=== PATIENT | female | born 1975 | race Caucasian/White ===

== ENCOUNTER 2017-07-21 16:50 | Emergency (ER) | payer BC ==
[2017-07-21 18:29] VITALS: BP 119/67
[2017-07-21] MEDS ORDERED: Acetaminophen TAB* 325 MG PO ONE (18:51)
--- NOTE | 2017-07-21 18:54 | UC ---
Respiratory Complaint HPI - HPI Summary HPI Summary: pt c/o sudden onset of cough, fever, chills and generalized malaise. Pt's daughter recently diagnosed with pneumonia - History of Current Complaint Chief Complaint: UCGeneralIllness Stated Complaint: COUGH,FEVER Time Seen by Provider: 07/21/17 18:22 Hx Obtained From: Patient Hx Last Menstrual Period: 05/2017, has had ablation ?: No Onset/Duration: Sudden Onset Timing: Constant Severity Initially: Mild Severity Currently: Moderate Character: Cough: Nonproductive Aggravating Factors: Deep Breaths, Recumbent Position Alleviating Factors: Nothing Associated Signs And Symptoms: Positive: Fever, Chills - Risk Factors Pulmonary Embolism Risk Factors: Negative Cardiac Risk Factors: Negative Pseudomonas Risk Factors: Negative Tuberculosis Risk Factors: Negative - Allergies/Home Medications Allergies/Adverse Reactions: Allergies Allergy/AdvReac Type Severity Reaction Status Date / Time Levofloxacin [From Levaquin] Allergy Intermediate Itching Verified 07/21/17 18: 28 Home Medications: Home Medications Fluticasone NASAL SPRAY 50MCG* [Flonase NASAL SPRAY 50MCG*] 2 spray BOTH NARES DAILY PRN 07/21/17 [History Confirmed 07/21/17] LevoCETirizine TAB (NF) [Xyzal TAB (NF)] 5 mg PO BEDTIME 07/21/17 [History Confirmed 07/21/17] PMH/Surg Hx/FS Hx/Imm Hx Previously Healthy: Yes - Surgical History Surgical History: Yes Surgery Procedure, Year, and Place: 2006 UTERINE ABLASION- [facility] [place]. 1998 LASIK SURG - [place]. 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 Lives: With Family Alcohol Use: Rare Alcohol Amount: 1 GLASS WINE/MONTH Substance Use Type: None Smoking Status (MU): Never Smoked Tobacco Have You Smoked in the Last Year: No - Immunization History Most Recent Influenza Vaccination: 06/2017 Review of Systems Constitutional: Fever, Chills, Other - malaise Skin: Negative Eyes: Negative ENT: Negative Respiratory: Cough Cardiovascular: Negative Gastrointestinal: Negative Genitourinary: Negative Motor: Negative Neurovascular: Negative Musculoskeletal: Myalgia Neurological: Negative Psychological: Negative Is Patient Immunocompromised?: No All Other Systems Reviewed And Are Negative: Yes Physical Exam Triage Information Reviewed: Yes Appearance: Ill-Appearing Vital Signs: Initial Vital Signs Temp 100 F 07/21/17 18:23 Pulse 98 07/21/17 18:23 Resp 15 07/21/17 18:23 BP 119/67 07/21/17 18:23 Pulse Ox 99 07/21/17 18:23 Vital Signs Reviewed: Yes Eye Exam: Normal ENT Exam: Normal Dental Exam: Normal Neck exam: Normal Respiratory Exam: Normal Cardiovascular Exam: Normal Musculoskeletal Exam: Normal Neurological Exam: Normal Psychological Exam: Normal Skin Exam: Normal UC Diagnostic Evaluation - Laboratory O2 Sat by Pulse Oximetry: 99 Respiratory Course/Dx - Course Course Of Treatment: I discussed the results of xray: IMPRESSION: BILATERAL INFILTRATES. SUGGEST FOLLOW-UP. with pt. - Differential Dx/Diagnosis Differential Diagnosis/HQI/PQRI: Bronchitis, Influenza, Other - pneumonia Provider Diagnoses: pneumonia Discharge - Discharge Plan Condition: Stable Disposition: HOME Prescriptions: Albuterol HFA INHALER* [Ventolin HFA Inhaler*] 1 - 2 puff INH Q4H PRN #1 mdi PRN Reason: Sob/Wheezing Azithromycin TAB* [Zithromax TAB (Z-MECHELLE) 250 mg #6 tabs] 250 mg PO DAILY #6 tab Benzonatate CAP* [Tessalon 100 MG CAP*] 100 mg PO Q8H PRN #30 cap PRN Reason: Cough Patient Education Materials: Pneumonia (ED) Referrals: Michela Blount MD [Primary Care Provider] - If Needed
--- NOTE | 2017-07-21 19:28 | RAD ---
INDICATION: Cough and fever COMPARISON: Chest x-ray June 27, 2008 TECHNIQUE: PA and lateral dual-energy views were obtained. FINDINGS: Bones/Soft Tissues: There are no acute bony findings. Cardiomediastinal: The cardiomediastinal silhouette is normal. Lungs: There are patchy, bilateral, interstitial infiltrates in the lower lung carrillo. Pleura: There are no pleural effusions. Other: None IMPRESSION: BILATERAL INFILTRATES. SUGGEST FOLLOW-UP.
[2017-07-21] MEDS ORDERED: cefTRIAXone VIAL(*) 1,000 MG VIAL IM ONE (19:35)
[2017-07-21] MEDS ORDERED: Benzonatate CAP* 100 MG PO ONE (19:36)
[2017-07-21] MEDS ORDERED: Lidocaine 1%* 5 ML VIAL INJ ONE (19:40)
== END 2017-07-21 20:15 | disposition home or self-care (01) ==
LOC: UCCORT 16:50
DX: J18.9 Pneumonia, unspecified organism (principal); Z88.1 Allergy status to other antibiotic agents
CPT/HCPCS: 71020; 87502; 96372; 99212; A9270-GY; G0463; J0696

== ENCOUNTER 2018-05-17 06:23 | Day surgery (SDC) | payer BC ==
[~2018-05-17 06:23] MED LIST: Buffered Lidocaine 0.9% SYRIN* 5 ML/SYR SYRINGE INTRADERM ONE; Dexamethasone TAB* 4 MG PO ONE; DiMENhydriNATE IV* 50 MG/ML VIAL IV PUSH PRN; Famotidine IV* 10 MG/ML 2 ML (20 mg) IV ONE; Morphine INJ* 2 MG/ML 1 ML SYRINGE (TWO MG - NEW SYRINGE VERSION) IV PRN; Naloxone* 0.4 MG/ML 1 ML VIAL IV PRN; Ondansetron INJ* 2 MG/ML VIAL ONE; PROCHLORPERAZINE INJ 5 MG/ML 2 ML VIAL IV PRN; fentaNYL* 50 MCG/ML 2 ML VIAL (100 MCG VIAL) IV PRN; oxyCODONE/Acetamin 5/325 MG* TAB PO PRN
[2018-05-17] MEDS ORDERED: Dexamethasone TAB* 4 MG ONE (07:04)
[2018-05-17] MEDS ORDERED: Famotidine IV* 10 MG/ML 2 ML (20 mg) ONE (07:04)
[2018-05-17] MEDS ORDERED: Ondansetron ODT TAB* 4 MG ONE (07:04)
[2018-05-17] MEDS ORDERED: Ropivacaine (OR use only) 2 MG/ML 10 ML ONE (07:05)
[2018-05-17] MEDS ORDERED: ceFAZolin 2 GM PREMIX (*) 2 GM/50 ML BAG IVPB ONE (07:05)
[2018-05-17] MEDS ORDERED: Lidocaine 2% PF* 10 ML AMP ONE (07:06)
[2018-05-17] MEDS ORDERED: KETAMINE HCL* 50 MG/ML 10 ML VIAL ONE (07:09)
[2018-05-17] MEDS ORDERED: Midazolam* 1 MG/ML 5 ML VIAL (5 MG) ONE (07:09)
[2018-05-17] MEDS ORDERED: fentaNYL* 50 MCG/ML 2 ML VIAL (100 MCG VIAL) ONE (07:09)
[2018-05-17] MEDS ORDERED: Propofol* 10 MG/ML 20 ML BTL IV PUSH ONE (09:05)
[2018-05-17] MEDS ORDERED: Lidocaine 2% PF * 5 ML VIAL ONE (09:06)
[2018-05-17] MEDS ORDERED: Propofol* 500 MG/50 ML BTL ONE (09:07)
[2018-05-17 09:28] VITALS: BP 110/67
--- NOTE | 2018-05-18 01:39 | OP ---
DATE OF OPERATION: 05/17/18 - [facility] DATE OF : 73 ATTENDING SURGEON: Bill Shepard MD DELI DEPARTMENT MANAGER: Chloé Claros PA-C. PRE-OP DIAGNOSIS: Right stage 2 hallux rigidus. POST-OP DIAGNOSIS: Right stage 2 hallux rigidus. OPERATIVE PROCEDURE: Debridement of right first MTP joint with Cartiva implant 8 mm. DESCRIPTION OF PROCEDURE: The patient was taken to the operating room, where dorsal incision was made over the first MTP joint. We raised a medial lateral flap and removed a small amount of rim osteophytes from the joint. The dorsal 50% of the joint metatarsal head had eburnated bone, plantar 50% had intact cartilage. We placed the intramedullary pin at the center of the metatarsal head and then overdrilled this to an 8 mm diameter. We then placed the Cartiva implant firmly into the subchondral bone and it was about a mm or 2 proud from the surrounding bone. The joint had free range of motion. We did free up bit of the flexor mechanism with the [place] elevator. We irrigated thoroughly and closed the dorsal capsule with 3-0 Vicryl and then 3-0 nylon for the skin and a compression dressing applied. [id number]/[facility] #: [id number] [facility] HOSPITALBandar
== END 2018-05-17 09:27 | disposition home or self-care (01) ==
LOC: OR 06:23
PROVIDERS: ATTEND Orthopaedic Surgery
DX: M20.21 Hallux rigidus, right foot (principal)
CPT/HCPCS: 81025; A9270-GY; C1776; J0690; J2001; J2250; J2704; J2795; J3010; J8540

== ENCOUNTER 2018-05-21 11:10 | Emergency (ER) | payer BC ==
--- NOTE | 2018-05-21 11:42 | ED ---
Upper Extremity Pain - HPI Summary HPI Summary: Patient is a 42 y/o F w/ c/o right, 2nd finger and left middle finger coldness, pain, and turning purple. Patient notes that she had right foot surgery four days ago and Sx onset after surgery. She states they had trouble with IV insertion and was c/o problems with anaesthesia. Patient reports an exacerbation of Sx yesterday. She notes she had a busy day and at 2030 last night her fingers began to feel numb. At 2100, she was experiencing pain and burning in fingers. Patient notes diagnosis of Raynaud's this past March, but reports fingers normally turn bright yellow and white. She states she does not receive treatment for Raynaud's as it was never painful. PCP diagnosed her. In the room, she notes pain and numbness is lessening. On triage, pain is denied. Patient denies other medical problems and specifically denies chest pain and SOB. - History of Current Complaint Chief Complaint: EDExtremityUpper Stated Complaint: FINGER NUMBNESS/PAIN Time Seen by Provider: 05/21/18 11:17 Hx Obtained From: Patient Hx Last Menstrual Period: 05/2017, has had ablation Onset/Duration: Started Days Ago - onset four days ago after right foot surgery , Resolved - in room, patient reports Sx are lessened at present Severity Currently: None - on triage, pain is denied Pain Location: Finger - right 2nd finger, middle left finger Character: Burning Associated Signs & Symptoms: Positive: Other - coldness, pain, numbness, and purple discoloration of right 2nd finger and left middle finger. Negative: Chest Pain, SOB - Allergies/Home Medications Allergies/Adverse Reactions: Allergies Allergy/AdvReac Type Severity Reaction Status Date / Time levofloxacin Allergy Itching Verified 05/21/18 11:47 PMH/Surg Hx/FS Hx/Imm Hx Endocrine/Hematology History: Denies: Hx Diabetes, Hx Thyroid Disease Cardiovascular History: Denies: Hx Hypercholesterolemia, Hx Hypertension, Hx Pacemaker/ICD, Hx Peripheral Vascular Disease Respiratory History: Reports: Hx Asthma - HX OF- NOT CURRENTLY, Other Respiratory Problems/Disorders - FOLLOWUP FOR PNEUMONIA Denies: Hx Chronic Obstructive Pulmonary Disease (COPD) GI History: Reports: Hx Gastroesophageal Reflux Disease - HX OF - NO MEDICATION FOR AT THIS TIME, Hx Ulcer - HX OF ULCERS-IN THE PAST >5 YEARS AGO, Other GI Disorders - acid reflux, abnormal US Musculoskeletal History: Reports: Hx Arthritis - RIGHT FOOT, BACK, Hx Bursitis - LEFT SHOULDER AND HIP, Other Musculoskeletal History - BONE SPURS RIGHT FOOT Denies: Hx Rheumatoid Arthritis, Hx Osteoporosis Sensory History: Denies: Hx Cataracts, Hx Contacts or Glasses, Hx Glaucoma, Hx Hearing Aid Opthamlomology History: Denies: Hx Cataracts, Hx Contacts or Glasses, Hx Glaucoma Neurological History: Denies: Hx Headaches, Hx Seizures, Hx Transient Ischemic Attacks (TIA) Psychiatric History: Reports: Hx Anxiety - MILD Denies: Hx Depression, Hx Panic Disorder - Surgical History Surgery Procedure, Year, and Place: 2006 UTERINE ABLASION- [facility] [place]. 1998 LASIK EYE SURG- [place]. right foot-CHEILECTOMY Hx Anesthesia Reactions: Yes - HAS WOKEN UP TO SOON Infectious Disease History: No Infectious Disease History: Denies: Hx Clostridium Difficile, Hx Hepatitis, Hx Human Immunodeficiency Virus (HIV), Hx of Known/Suspected MRSA, Hx Shingles, Hx Tuberculosis, Hx Known/ Suspected VRE, Hx Known/Suspected VRSA, History Other Infectious Disease, Traveled Outside the [place] in Last 30 Days - Family History Known Family History: Positive: Cardiac Disease - Social History Alcohol Use: None Alcohol Amount: 1 GLASS WINE/MONTH Hx Substance Use: No Substance Use Type: Reports: None Hx Tobacco Use: No Smoking Status (MU): Never Smoked Tobacco Have You Smoked in the Last Year: No Review of Systems Negative: Chest Pain Negative: Shortness Of Breath Positive: Other - coldness, numbness, pain, discoloration (turning purple) of right 2nd finger and left middle finger All Other Systems Reviewed And Are Negative: Yes Physical Exam - Summary Physical Exam Summary: GENERAL: Patient is a well developed and nourished female who is lying comfortable in the stretcher. Patient is not in any acute respiratory distress. HEAD AND FACE: Normocephalic EYES: PERRLA, EOMI x 2. EARS: Hearing grossly intact. MOUTH: Oropharynx within normal limits. NECK: Supple, trachea is midline, no adenopathy, no JVD, no carotid bruit. CHEST: Symmetric, no tenderness at palpation LUNGS: Clear to auscultation bilaterally. No wheezing or crackles. CVS: Regular rate and rhythm, S1 and S2 present, no murmurs or gallops appreciated. ABDOMEN: Soft, non-tender. Bowel sounds are normal. No abdominal abnormal pulsations. EXTREMITIES: Full ROM in all major joints, no edema, purple discoloration at left middle finger and right 2nd finger , cap refill less than 3 seconds in affected digit, 2+ radial pulses b/l NEURO: Alert and oriented x 3. No acute neurological deficits. Speech is normal and follows commands. SKIN: Dry and warm; Triage Information Reviewed: Yes Vital Signs On Initial Exam: Initial Vitals Temp Pulse Resp BP Pulse Ox 98.7 F 83 16 136/77 100 05/21/18 11:13 05/21/18 11:13 05/21/18 11:13 05/21/18 11:13 05/21/18 11:13 Vital Signs Reviewed: Yes Diagnostics - Vital Signs Vital Signs Temp Pulse Resp BP Pulse Ox 05/21/18 11:13 98.7 F 83 16 136/77 100 - Laboratory Result Diagrams: 05/21/18 13:23 05/21/18 13:23 Lab Statement: Any lab studies that have been ordered have been reviewed, and results considered in the medical decision making process. Re-Evaluation - Re-Evaluation First Eval Re-Evaluation Time: 13:20 Comment: Discussed results of labs and tests. Once TSH and T4 results return, patient will be discharged to home and follow up with PCP and swimming pool plasterer helper. Patient is agreeable with this plan and hemodynamically stable. Strict return precautions given as well. Second Eval Re-Evaluation Time: 15:03 Comment: Due to long wait time of TSH and T4 as well as business of ED, patient will be discharged to home and adhere to discharged plan previously discussed. Patient will be called if abnormal results return. Patient is agreeable with this plan. Course/Dx - Course Assessment/Plan: Patient is a 42 y/o F w/ c/o right, 2nd finger and left middle finger coldness, pain, and turning purple. Patient notes that she had right foot surgery four days ago and Sx onset after surgery. She states they had trouble with IV insertion and was c/o problems with anaesthesia. Patient reports an exacerbation of Sx yesterday. She notes she had a busy day and at 2030 last night her fingers began to feel numb. At 2100, she was experiencing pain and burning in fingers. Patient notes diagnosis of Raynaud's this past March , but reports fingers normally turn bright yellow and white. She states she does not receive treatment for Raynaud's as it was never painful. PCP diagnosed her. In the room, she notes pain and numbness is lessening. On triage, pain is denied. Patient denies other medical problems and specifically denies chest pain and SOB. Physical exam showed purple discoloration at left middle finger and right 2nd finger with no other abnormal findings. During ED course, patient was given Norvasc Tab, 5 mg PO ONCE ONE. Labs showed no abnormal findings. As there was no rheumatology coverage, attempted to call Dr. Rivera but did not berry picker machine operator. Contacted [facility] swimming pool plasterer helper, but as he cannot see patient he was reluctant to give advise but would be happy to see her in the office. At 13:20, discussed results of labs and tests. Once TSH and T4 results return, patient will be discharged to home and follow up with PCP and swimming pool plasterer helper. Patient is agreeable with this plan and hemodynamically stable. Strict return precautions given as well. At 15:03, due to long wait time of TSH and T4 as well as business of ED, patient will be discharged to home and adhere to discharged plan previously discussed. Patient will be called if abnormal results return. Patient is agreeable with this plan. Patients TSH was 1.38, free T4 0.87 and are not concerning. No other abnormal labs noted. Patient was diagnosed with Raynaud disease and will follow up with Rheumatology. - Diagnoses Provider Diagnoses: Raynaud disease - Physician Notifications Time Discussed With Above Provider: 12:32 Instructed by Provider To: Other - 12:32 -- As there was no rheumatology coverage, attempted to call Dr. Rivera but did not berry picker machine operator. Contacted [facility] swimming pool plasterer helper, but as he cannot see patient he was reluctant to consult. Discharge - Sign-Out/Discharge Documenting (check all that apply): Patient Departure - discharge - Discharge Plan Condition: Stable Disposition: HOME Prescriptions: amLODIPine TAB* [Norvasc 5 mg TAB*] 5 mg PO DAILY #30 tab Patient Education Materials: Raynaud Disease (ED) Referrals: Michela Blount MD [Primary Care Provider] - 2 Days [facility] [Provider Group] - 2 Days Additional Instructions: Follow up with PCP and swimming pool plasterer helper in 1-2 days. Return to ED for any changing or worsening symptoms. - Billing Disposition and Condition Condition: STABLE Disposition: Home - Attestation Statements Document Initiated by Yan: Yes Documenting Scribe: Randall Rivera Provider For Whom Yan is Documenting (Include Credential): Marcia Cao M.D. Scribe Attestation: Randall Ortiz, scribed for Marcia Cao M.D. on 05/22/18 at 1742. Scribe Documentation Reviewed: Yes Provider Attestation: The documentation as recorded by the Randall espinosa accurately reflects the service I personally performed and the decisions made by , Marcia Cao M.D.
[2018-05-21] MEDS ORDERED: amLODIPine TAB* 5 MG PO ONE (12:28)
--- OUTSIDE RECORDS SUMMARY | 2018-05-21 12:35 | XMS REPORT ---
:1975 External Reference #:[id number] Author Organization [facility] Address [address] [place] [address] [place] [address] Phone [phone] Care Team Providers Name Role Phone Michela Blount MD Primary Care Physician Unavailable Payers Type Date Identification Numbers Payment Provider Subscriber Commercial Effective: Policy Number: [employer] Aliza Briggs 2011 [id number] PayID: [id number] [address] [address] [place] [address] Problems Description No Information Family History Date Family Member(s) Problem(s) Comments General Heart Disease General Cancer Social History Type Date Description 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 Denies alcohol use Smoking Patient has never smoked Exercise Type/Frequency Exercises regularly Allergies, Adverse Reactions, Alerts Date Description Reaction Status Severity Comments 11/22/2014 Levaquin active Moderate to Severe Medications Medication Date Status Form Strength Qnty SIG Indications Ordering Provider Meclizine HCL Active Tablets 12.5mg three times Unknown 00 a day as needed Cymbalta Active 50mg as directed Unknown 00 Singulair Hx Tablets 10mg 1 by mouth Unknown 00 - every day 04/21/20 18 Vital Signs Date Vital Result Comment 04/22/2018 Height 63 inches 5'3" Heart Rate 80 /min BP Systolic Sitting 108 mmHg BP Diastolic Sitting 70 mmHg Respiratory Rate 16 /min Body Temperature 98.4 F Pain Level 3 03/30/2018 Height 63 inches 5'3" Heart Rate 74 /min BP Systolic 110 mmHg BP Diastolic 58 mmHg Respiratory Rate 16 /min Body Temperature 98.7 F Pain Level 7 11/23/2015 Height 63 inches 5'3" Weight 134.00 lb BMI (Body Mass Index) 23.7 kg/m2 02/16/2015 Height 63 inches 5'3" Weight 134.00 lb Pain Level 3 BMI (Body Mass Index) 23.7 kg/m2 02/06/2015 Height 63 inches 5'3" Weight 134.00 lb Body Temperature 99.1 F Pain Level 1 BMI (Body Mass Index) 23.7 kg/m2 01/18/2015 Height 63 inches 5'3" Body Temperature 98.2 F Pain Level 5 11/22/2014 Height 63 inches 5'3" Weight 130.00 lb Heart Rate 91 /min BP Systolic 104 mmHg BP Diastolic 63 mmHg Pain Level 7 BMI (Body Mass Index) 23.0 kg/m2 Results Test Date Test Result H/L Range Note Laboratory test finding 01/25/2015 Urine Negative Negative 1 1 If is still suspected, please repeat test after 48 to 72 hours. This test detects intact HCG only and is indicated for the early detection of . Procedures Date CPT Code Description Status 01/25/2015 98985 Hallux Rigidus Martine W/Cheilectomy,Debrid,Capsular Completed Release 1St Met 01/25/2015 03251 Hallux Rigidus Martine W/Cheilectomy,Debrid,Capsular Completed Release 1St Met Encounters Type Date Location Provider CPT E/M Dx Office Visit 04/22/2018 [facility], 11192 M20.21 10:45a [facility] Office Visit 03/30/2018 [facility] 27352 M20.21 11:00a [facility] Office Visit 11/23/2015 [facility] 57641 M20.21 1:00p [facility] Office Visit 01/18/2015 [facility], 08263 735.2 4:30p [facility] Office Visit 11/22/2014 [facility], 95456 735.2 2:00p [facility] Plan of Care Future Appointment(s):05/27/2018 11:30 am - Bill [facility] M.D. at [facility]/17/2018 7:30 am - [facility] - Bill Shepard M.D.M20.21 Hallux rigidus, right footNew Therapy:Rehab ReferralFollow up:10-14 days postop
[2018-05-21 13:37] LABS: ABS Basophils 0.1 10^3/ul (0-0.2); ABS Eosinophils 0.1 10^3/ul (0-0.6); ABS Lymphocytes 1.6 10^3/ul (1.0-4.8); ABS Monocytes 0.3 10^3/ul (0-0.8); ABS Neutrophils 4.6 10^3/ul (1.5-7.7); ABS Nucleated RBC 0 10^3/ul; Eosinophil % 1.8 % (0-6); Hematocrit 42 % (35-47); Hemoglobin 14.2 g/dl (12.0-16.0); Lymphocyte % 24.1 % (25-47); Mean Corpuscular HGB Conc 34 g/dl (31-36); Mean Corpuscular Hemoglobin 32 pg (27-31); Mean Corpuscular Volume 93 fL (80-97); Mean Platelet Volume 9.2 um3 (7.4-10.4); Nucleated Red Blood Cells % 0; Platelet Count 228 10^3/ul (150-450); Red Blood Count 4.49 10^6/ul (4.00-5.40); Red Cell Distribution Width 13 % (10.5-15); White Blood Count 6.7 10^3/ul (3.5-10.8)
[2018-05-21 13:57] LABS: INR 0.95 (0.77-1.02)
[2018-05-21 15:09] VITALS: BP 116/83
== END 2018-05-21 15:08 | disposition home or self-care (01) ==
LOC: ED 11:10
DX: I73.00 Raynaud's syndrome without gangrene (principal)
CPT/HCPCS: 36415; 80053; 84439; 84443; 85025; 85610; 85652; 85730; 86141; 99282; A9270-GY

== ENCOUNTER 2018-12-09 16:13 | Emergency (ER) | payer BC ==
[2018-12-09 17:51] VITALS: BP 130/60
--- NOTE | 2018-12-09 19:25 | UC ---
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 Chest sore from coughing. No fever. all family members unwell since trip to [facility] 2 weeks ago. - History of Current Complaint Chief Complaint: UCGeneralIllness Stated Complaint: COUGH,SORE THROAT Time Seen by Provider: 12/09/18 19:14 Hx Obtained From: Patient Hx Last Menstrual Period: 11/25/18 Onset/Duration: Gradual Onset, Lasting Days - 6 Pain Intensity: 6 Cough: Nonproductive Associated Signs & Symptoms: Positive: Dysphagia, Hoarseness, Sinus Discomfort - Epiglottits Risk Factors Epiglottis Risk Factors: Negative - Allergies/Home Medications Allergies/Adverse Reactions: Allergies Allergy/AdvReac Type Severity Reaction Status Date / Time levofloxacin Allergy Itching Verified 05/21/18 11:47 PMH/Surg Hx/FS Hx/Imm Hx - Additional Past Medical History Additional PMH: Raynaud's phenomenon, takes amlodipine. Previously Healthy: Yes - Surgical History Surgical History: Yes Surgery Procedure, Year, and Place: 2006 UTERINE ABLASION- [facility] – [place]. 1998 LASIK EYE SURG- [place]. 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 Skin: Positive: Negative Eyes: Positive: Negative ENT: Positive: Sore Throat Respiratory: Positive: Cough Cardiovascular: Positive: Negative Gastrointestinal: Positive: Negative Genitourinary: Positive: Negative Motor: Positive: Negative Neurovascular: Positive: Negative Musculoskeletal: Positive: Negative Neurological: Positive: Negative Psychological: Positive: Negative Is Patient Immunocompromised?: No Physical Exam Triage Information Reviewed: Yes Appearance: Ill-Appearing - looks fatigued, hoarse voice, mildly unwell Vital Signs: Initial Vital Signs Temp 98.4 F 12/09/18 17:46 Pulse 92 12/09/18 17:46 Resp 19 12/09/18 17:46 BP 130/60 12/09/18 17:46 Pulse Ox 99 12/09/18 17:46 Eyes: Positive: Conjunctiva Clear ENT: Positive: Pharyngeal erythema, TMs normal Neck: Positive: Supple, Nontender, No Lymphadenopathy Respiratory: Positive: Lungs clear, Normal breath sounds Cardiovascular: Positive: RRR, No Murmur Musculoskeletal Exam: Normal Neurological Exam: Normal Psychological Exam: Normal Skin Exam: Normal Throat Pain/Nasal Course/Dx - Course Course Of Treatment: azithromycin for treatment of possible mycoplasma, trial guaifenesin. - Differential Dx/Diagnosis Differential Diagnosis/HQI/PQRI: Laryngitis, Sinusitis, URI, Other - mycoplasma pneumonia Provider Diagnosis: Mycoplasma infection, unspecified site Discharge - Sign-Out/Discharge Documenting (check all that apply): Patient Departure All imaging exams completed and their final reports reviewed: No Studies - Discharge Plan Condition: Stable Disposition: HOME Prescriptions: Azithromyxin MECHELLE (NF) [Z-Mechelle (Zithromax) 250 mg tabs #6] 2 tab PO .TODAY, THEN 1 DAILY #6 tab Patient Education Materials: Pharyngitis (ED) Referrals: Michela Blount MD [Primary Care Provider] - Additional Instructions: The persistent symptoms suggest possible mycoplasma, and azithromycin should ease your symptoms. Guaifenesin does not cause constriction of blood vessels. Use of 600mg twice daily should help to ease the tight cough. You could try over the counter Zarbees for control of cough and to promote sleep. - Billing Disposition and Condition Condition: STABLE Disposition: Home
== END 2018-12-09 19:46 | disposition home or self-care (01) ==
LOC: UCCORT 16:13
DX: A49.3 Mycoplasma infection, unspecified site (principal); I73.00 Raynaud's syndrome without gangrene; Z88.1 Allergy status to other antibiotic agents; Z79.899 Other long term (current) drug therapy
CPT/HCPCS: 99212; G0463

== ENCOUNTER 2019-05-15 16:03 | Emergency (ER) | payer BC ==
[2019-05-15] MEDS ORDERED: Ondansetron INJ* 2 MG/ML VIAL ONE (16:33)
[2019-05-15] MEDS ORDERED: fentaNYL* 50 MCG/ML 2 ML VIAL (100 MCG VIAL) ONE ×2 (16:33→17:26)
[2019-05-15] MEDS ORDERED: fentaNYL* 50 MCG/ML 2 ML VIAL (100 MCG VIAL) IV SLOW PU ONE (16:35)
[2019-05-15] MEDS ORDERED: Ondansetron INJ* 2 MG/ML VIAL IV ONE (16:35)
--- NOTE | 2019-05-15 16:42 | ED ---
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 She stated that she slipped on concrete after stepping down a set of stairs and twisted her ankle. The pain is currently a 10/ 10 in severity. She stated that the area is swollen and hurts more with movement and palpation. She denies any decreased sensations in her foot along with fevers, chills, CP, SOB, and N/V. She stated that she took 600 mg of Ibuprofen PARTS SALESMAN. - History of Current Complaint Chief Complaint: EDExtremityLower Stated Complaint: LT ANKLE INJURY PER Hx Obtained From: Patient Hx Last Menstrual Period: 11/25/18 Mechanism Of Injury: Fall From A Standing Position, Twisted Onset of Pain: Immediate Onset/Duration: Still Present - PARTS SALESMAN Severity Initially: Severe Severity Currently: Severe Pain Intensity: 10 Pain Scale Used: 0-10 Numeric Timing: Constant Location: Is Discrete @ - L ankle Associated Signs And Symptoms: Positive: Swelling Aggravating Factor(s): Standing, Movement Alleviating Factor(s): Nothing - Allergies/Home Medications Allergies/Adverse Reactions: Allergies Allergy/AdvReac Type Severity Reaction Status Date / Time levofloxacin Allergy Itching Verified 05/15/19 16:07 Home Medications: Home Medications Aspirin 81 mg CHEW TAB* 1 tab PO DAILY 05/15/19 [History Confirmed 05/15/19] PMH/Surg Hx/FS Hx/Imm Hx Previously Healthy: Yes Endocrine/Hematology History: Denies: Hx Diabetes, Hx Thyroid Disease Cardiovascular History: Denies: Hx Hypercholesterolemia, Hx Hypertension, Hx Pacemaker/ICD, Hx Peripheral Vascular Disease Respiratory History: Reports: Hx Asthma - HX OF- NOT CURRENTLY, Other Respiratory Problems/Disorders - FOLLOWUP FOR PNEUMONIA Denies: Hx Chronic Obstructive Pulmonary Disease (COPD) GI History: Reports: Hx Gastroesophageal Reflux Disease - HX OF - NO MEDICATION FOR AT THIS TIME, Hx Ulcer - HX OF ULCERS-IN THE PAST >5 YEARS AGO, Other GI Disorders - acid reflux, abnormal US Musculoskeletal History: Reports: Hx Arthritis - RIGHT FOOT, BACK, Hx Bursitis - LEFT SHOULDER AND HIP, Other Musculoskeletal History - BONE SPURS RIGHT FOOT Denies: Hx Rheumatoid Arthritis, Hx Osteoporosis Sensory History: Denies: Hx Cataracts, Hx Contacts or Glasses, Hx Glaucoma, Hx Hearing Aid Opthamlomology History: Denies: Hx Cataracts, Hx Contacts or Glasses, Hx Glaucoma Neurological History: Denies: Hx Headaches, Hx Seizures, Hx Transient Ischemic Attacks (TIA) Psychiatric History: Reports: Hx Anxiety - MILD Denies: Hx Depression, Hx Panic Disorder - Surgical History Surgery Procedure, Year, and Place: [place] [facility] [place]YE SUR[place]- [facility]. right foot-CHEILECTOMY x 2 Hx Anesthesia Reactions: Yes - HAS WOKEN UP TO SOON - Immunization History Immunizations Up to Date: Yes Infectious Disease History: No Infectious Disease History: Denies: Hx Clostridium Difficile, Hx Hepatitis, Hx Human Immunodeficiency Virus (HIV), Hx of Known/Suspected MRSA, Hx Shingles, Hx Tuberculosis, Hx Known/ Suspected VRE, Hx Known/Suspected VRSA, History Other Infectious Disease, Traveled Outside the [place] in Last 30 Days - Family History Known Family History: Positive: Cardiac Disease - Social History Occupation: Employed Full-time Lives: With Family Alcohol Use: Rare Alcohol Amount: 1 GLASS WINE/MONTH Hx Substance Use: No Substance Use Type: Reports: None Hx Tobacco Use: No Smoking Status (MU): Never Smoked Tobacco Have You Smoked in the Last Year: No Review of Systems Negative: Fever, Chills Negative: Chest Pain Negative: Shortness Of Breath Negative: Vomiting, Nausea Positive: Other - L ankle pain with associated swelling All Other Systems Reviewed And Are Negative: Yes Physical Exam - Summary Physical Exam Summary: VITAL SIGNS: Reviewed. GENERAL: Patient is a well-developed and nourished female who is lying comfortable in the stretcher. Patient is not in any acute respiratory distress. HEAD AND FACE: No signs of trauma. No ecchymosis, hematomas or skull depressions. No sinus tenderness. EYES: PERRLA, EOMI x 2, No injected conjunctiva, no nystagmus. EARS: Hearing grossly intact. Ear canals and tympanic membranes are within normal limits. MOUTH: Oropharynx within normal limits. NECK: Supple, trachea is midline, no adenopathy, no JVD, no carotid bruit, no c- spine tenderness, neck with full ROM. CHEST: Symmetric, no tenderness at palpation LUNGS: Clear to auscultation bilaterally. No wheezing or crackles. CVS: Regular rate and rhythm, S1 and S2 present, no murmurs or gallops appreciated. ABDOMEN: Soft, non-tender. No signs of distention. No rebound no guarding, and no masses palpated. Bowel sounds are normal. EXTREMITIES: L ankle deformity, good sensation and good capillary refill, good pulses. NEURO: Alert and oriented x 3. No acute neurological deficits. Speech is normal and follows commands. SKIN: Dry and warm Triage Information Reviewed: Yes Vital Signs On Initial Exam: Initial Vitals Temp Pulse Resp BP Pulse Ox 100 F 104 16 195/85 100 05/15/19 16:04 05/15/19 16:04 05/15/19 16:04 05/15/19 16:04 05/15/19 16:04 Vital Signs Reviewed: Yes Procedures - Splinting Left Lower Extremity Location: L ankle Hand-Made Type: orthoglass Splint: sugar-tong Pre-Proc Neuro Vasc Exam: normal Post-Proc Neuro Vasc Exam: unchanged from pre-exam - vital signs stable Splint Applied by Provider: Santo Stockton - Vital Signs Vital Signs Temp Pulse Resp BP Pulse Ox 05/15/19 16:36 20 05/15/19 16:04 100 F 104 16 195/85 100 - Laboratory Lab Statement: Any lab studies that have been ordered have been reviewed, and results considered in the medical decision making process. - Radiology L ankle X-Ray Radiology Interpretation Completed By: Radiologist Summary of Radiographic Findings: TRIMALLEOLAR FRACTURE WITH WIDENING OF THE MORTISE. ED physician has reviewed this report. L ankle X-Ray (after procedure) Radiology Interpretation Completed By: Radiologist Summary of Radiographic Findings: IMPROVEMENT OF THE TRIMALLEOLAR FRACTURE WITH A BETTER MORTISE. Lower Extremity Course/Dx - Course Course Of Treatment: CONSCIOUS SEDATION. PROCEDURE NOTE: Procedural Sedation. Indications: left trimalleolar fracture. Sterling Protocol: a timeout was performed and the correct patient and site were verified. Consent: The risks and benefits of monitored anesthesia care, including the risk of aspiration, deep sedation requiring airway management including possible intubation, nausea and vomiting and the risks of not performing the procedure, including severe pain and inability to complete the procedure, were all discussed with the patient. The alternatives of performing the procedure, including local anesthesia and IV analgesia, also discussed. The patient has a ride home available. ASA Class: II-mild systemic disease IV-incapacitating systemic disease]. Pre-anesthesia evaluation, including history, exam, and informed consent is documented in the ED note above. Monitoring: Continuous monitoring of heart rate, respiratory rate, pulse oximetry and ETCO2. Supplemental oxygen prior to and during procedure via nasal cannula. Resuscitation equipment available at the bedside during sedation. The patient received Versed and Fentanyl and dosages were recorded on the sedation form. The patient was recovered from the sedation without complication or incident. Patient returned to pre-sedation level of awareness. The monitoring was discontinued at this time. Post-anesthesia evaluation: Patient is hemodynamically statble. Respiratory function, cardiovascular function, temperature, and mental status did return to pre-anesthetic state. Pain is controlled. 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 She stated that she slipped on concrete after stepping down a set of stairs and twisted her ankle. The pain is currently a 10/10 in severity. She stated that the area is swollen and hurts more with movement and palpation. She denies any decreased sensations in her foot along with fevers, chills, CP, SOB, and N/V. She stated that she took 600 mg of Ibuprofen PARTS SALESMAN. X-ray of the left ankle impression: TRIMALLEOLAR FRACTURE WITH WIDENING OF THE MORTISE. In the ED course the patient was given IV fluids and fentanyl for the pain. I discussed the case with Dr. Lopez from orthopedics and she recommends reduction of the fracture. I discussed the findings, test results and the plan with the patient and she agrees. I gave the benefits and risk of aspiration and the patient gave us permission and sign consent for the conscious sedation. After the patient was given Versed and fentanyl for the conscious sedation was able to reduce the fracture. I also found that the patient has an a small amount superficial abrasion in the medial aspect of the medial malleolus but is not a point to hold. I used a Q-tip to try to insert the per the Q-tip and is not a puncture home. I made Dr. Lopez aware. We decided to give and 1 dose of Rocephin before discharge. The patient also was given a prescription for Keflex. The patient will be seen Dr. Lopez on Thursday. Patient was given instructions to return to the emergency department she develops any increase in pain despite pain medications, fevers, chills, numbness, or any other symptom. The patient understands and agrees. The patient was given instructions of the conscious sedation. At this time the patient is alert and oriented 3, pain is controlled, vital signs are stable. - Diagnoses Provider Diagnoses: Trimalleolar fracture of ankle, closed - Physician Notifications Discussed Care Of Patient With: Yoselyn Mireles Time Discussed With Above Provider: 18:14 Instructed by Provider To: Have Pt Call For Appt. - Dr. Mireles, orthopedic, was informed of the pt's condition. Dr Mireles recommended giving the pt one small dosage of rocephin due to a small 1 cm abrasion on her medial malleolus. Discharge - Sign-Out/Discharge Documenting (check all that apply): Patient Departure - discharge Patient Received Moderate/Deep Sedation with Procedure: Yes - Discharge Plan Condition: Stable Disposition: HOME Prescriptions: Cephalexin CAP* [Keflex CAP*] 500 mg PO QID #28 cap oxyCODONE/Acetamin 5/325 MG* [Percocet 5/325 TAB*] 1 tab PO Q6H PRN #10 tab MDD 4 PRN Reason: Pain - Mild Patient Education Materials: Ankle Fracture (ED), Procedural Sedation (ED) Referrals: Michela Blount MD [Primary Care Provider] - 2 Days Yoselyn Mireles MD [Medical Doctor] - 2 Days Additional Instructions: PLEASE RETURN TO THE EMERGENCY DEPARTMENT FOR ANY NEW OR WORSENING SYMPTOMS. FOLLOW UP WITH YOUR PRIMARY CARE PHYSICIAN AND DR. MIRELES, ORTHOPEDICS, FOR FURTHER EVALUATIONS WITHIN 1 WEEK. - Billing Disposition and Condition Condition: STABLE Disposition: Home - Attestation Statements Document Initiated by Yan: Yes Documenting Scribe: Matthew Camacho Provider For Whom Yan is Documenting (Include Credential): Santo Stockton MD Scribe Attestation: Matthew Ortiz, scribed for Santo Stockton MD on 05/15/19 at 1856. Scribe Documentation Reviewed: Yes Provider Attestation: The documentation as recorded by the Matthew espinosa accurately reflects the service I personally performed and the decisions made by me, Santo Stockton MD Status of Scribe Document: Viewed
[2019-05-15] MEDS ORDERED: Flumazenil* 0.1 MG/ML 5 ML MDV ONE (17:18)
[2019-05-15] MEDS ORDERED: Naloxone* 0.4 MG/ML 1 ML VIAL ONE (17:18)
[2019-05-15] MEDS ORDERED: Midazolam* 1 MG/ML 10 ML VIAL (10 MG) ONE (17:26)
[2019-05-15] MEDS ORDERED: cefTRIAXone(*) 1 GM in NS 0.9% 50 ML* 50 ML IVPB ONE (18:14)
[2019-05-15 19:31] VITALS: BP 114/73
== END 2019-05-15 19:31 | disposition home or self-care (01) ==
LOC: ED 16:03
DX: S82.852A Displaced trimalleolar fracture of left lower leg, initial encounter for closed fracture (principal); W18.40XA Slipping, tripping and stumbling without falling, unspecified, initial encounter; Y92.9 Unspecified place or not applicable; Z88.1 Allergy status to other antibiotic agents; Z79.82 Long term (current) use of aspirin
CPT/HCPCS: 96365; 96375; 99285; J0696; J2250; J2310; J2405; J3010

== ENCOUNTER 2019-05-19 10:14 | Day surgery (SDC) | payer BC ==
[~2019-05-19 10:14] MED LIST changes: -Buffered Lidocaine 0.9% SYRIN* 5 ML/SYR SYRINGE INTRADERM ONE; +Buffered Lidocaine 1% SYRIN* 1 ML/SYRINGE INTRADERM ONE; -Dexamethasone TAB* 4 MG PO ONE; -DiMENhydriNATE IV* 50 MG/ML VIAL IV PUSH PRN; -Famotidine IV* 10 MG/ML 2 ML (20 mg) IV ONE; +Lactated Ringers 1000 ML Bag* 1,000 ML IV SCH; -Morphine INJ* 2 MG/ML 1 ML SYRINGE (TWO MG - NEW SYRINGE VERSION) IV PRN; -Naloxone* 0.4 MG/ML 1 ML VIAL IV PRN; -Ondansetron INJ* 2 MG/ML VIAL ONE; -PROCHLORPERAZINE INJ 5 MG/ML 2 ML VIAL IV PRN; -fentaNYL* 50 MCG/ML 2 ML VIAL (100 MCG VIAL) IV PRN; -oxyCODONE/Acetamin 5/325 MG* TAB PO PRN
[2019-05-19] MEDS ORDERED: Dexmedetomidine* 200 MCG/2 ML 2 ML VIAL ONE (11:01)
[2019-05-19] MEDS ORDERED: ceFAZolin 2 GM in NS PREMIX(*) 2 GM/100 ML BAG IVPB ONE (11:01)
[2019-05-19] MEDS ORDERED: ROPIVACAINE 5 MG/ML 30 ML BTL (0.5%) ONE (11:01)
[2019-05-19] MEDS ORDERED: Lidocaine 2% PF * 5 ML VIAL ONE ×3 (11:01→13:23)
[2019-05-19] MEDS ORDERED: KETAMINE HCL* 50 MG/ML 10 ML VIAL ONE (11:30)
[2019-05-19] MEDS ORDERED: Propofol* 500 MG/50 ML BTL ONE (11:30)
[2019-05-19] MEDS ORDERED: Midazolam* 1 MG/ML 2 ML VIAL (2 MG) ONE (11:31)
[2019-05-19] MEDS ORDERED: Bupivacaine 0.5% SDV PF* 30ML VIAL ONE (11:34)
[2019-05-19] MEDS ORDERED: Bupivacaine 0.5%* 50 ML MDV VIAL ONE (12:04)
[2019-05-19] MEDS ORDERED: Midazolam* 1 MG/ML 5 ML VIAL (5 MG) ONE (12:14)
[2019-05-19] MEDS ORDERED: Dexamethasone IV* 4 MG/ML 1 ML (4 MG) ONE (13:35)
[2019-05-19] MEDS ORDERED: Ketorolac INJ* 30 MG/ML 1 ML VIAL IV PRN (13:47)
[2019-05-19] MEDS ORDERED: Naloxone* 0.4 MG/ML 1 ML VIAL IV PRN (13:47)
[2019-05-19] MEDS ORDERED: fentaNYL* 50 MCG/ML 2 ML VIAL (100 MCG VIAL) IV PRN (13:47)
[2019-05-19] MEDS ORDERED: oxyCODONE TAB* 5 MG TAB PO PRN (13:47)
[2019-05-19] MEDS ORDERED: Acetaminophen TAB* 325 MG PO PRN (13:47)
[2019-05-19] MEDS ORDERED: Ondansetron INJ* 2 MG/ML VIAL IV PRN (13:47)
--- NOTE | 2019-05-19 14:57 | OP ---
Operative Report - Blank - Operative Report Date of Operation: 05/19/19 Note: PATIENT: Aliza Briggs DATE OF : 1975 DATE OF SURGERY: 05/19/2019 SURGEON: Pedro Dutton MD TOOL MACHINE SETUP OPERATOR: DONAVON Washburn, whos assistance was necessary for positioning, retraction, help with instrumentation, and closure. ANESTHESIOLOGIST: Dr. Wade PREOPERATIVE DIAGNOSIS: Left trimalleolar ankle fracture POSTOPERATIVE DIAGNOSIS: Left trimalleolar ankle fracture and disruption of the distal tibia-fibula syndesmosis. OPERATION: 1. Left trimalleolar ankle fracture open reduction and internal fixation of medial and lateral malleoli. 2. Stress views performed by surgeon utilizing fluoroscopy under anesthesia. 3. Left distal tibia-fibula syndesmosis open reduction and internal fixation. ANESTHESIA: Spinal IMPLANTS: Arthrex ankle fracture set plate and screws TOURNIQUET TIME: Less than 2 hours with a well-padded thigh tourniquet at 250mmHg SPECIMENS: none ESTIMATED BLOOD LOSS: minimal COMPLICATIONS: none STATUS: Stable from the operating room to the recovery room and then home. INDICATIONS FOR PROCEDURE: Aliza sustained a left ankle fracture dislocation that was close reduced in the ER. Both operative and non operative treatment alternatives were reviewed. Further, the nature and risks of surgery were reviewed in careful detail, in the office as well as the pre-operative holding area. Our discussions regarding the risks of surgery included, but were not limited to, infection, wound problems, nerve injury, neuroma, RSD, persistent symptoms, blood clot, nonunion , malunion, post-traumatic arthritis, hardware failure, failure of the surgery, and even the remote chance of catastrophic complication, including loss of limb. DESCRIPTION OF PROCEDURE: The patient was seen in the preoperative holding unit and informed written consent was obtained. The appropriate extremity was marked. The patient was then brought to the operating room and carefully positioned on the operating room table. Anesthesia was induced. All bony prominences were padded with great care. A well-padded thigh tourniquet was placed. A chlorhexidine based pre- scrub was performed followed by a chloraprep prep and drape in standard sterile fashion. A surgical safety pause was then conducted in which we confirmed the appropriate patient, extremity, planned procedure, availability of equipment, indication and administration of prophylactic antibiotics, and DVT prophylaxis in the form of a compression boot on the non-surgical extremity. I began with Esmarch exsanguination of the limb and inflated the tourniquet. I then utilized a laterally based incision overlying the distal fibula. Great care was taken to protect the superficial peroneal nerve, which was not visualized within the field of view. I dissected down through the soft tissue layers to expose the distal fibula. I then exposed the fracture planes. There was a long butterfly fragment. Fracture hematoma was removed. I first reduced the butterfly fragment to the proximal fracture fragment with pointed reduction clamps. I then placed 2 bicortical lag screws with excellent bite and compression. I then gained a reduction of the distal fibular fracture utilizing a pointed reduction clamp. I placed an Arthrex anatomic distal fibula plate laterally and then confirmed the reduction and the position of the plate fluoroscopically. I placed screws to hold the plate to the bone. The provisional fixation was removed and then I again confirmed fluoroscopically the appropriate position of the plate and screw lengths. I then evaluated the syndesmosis, which was disrupted on direct examination, and there was abnormal motion. This was confirmed with stress fluoroscopy, which did show subtle widening of the distal tib-fib syndesmosis on external rotation and cotton testing. Therefore, I proceeded with open reduction and internal fixation of the distal tib-fib syndesmosis. We held the syndesmosis reduced and were pleased with syndesmotic reduction both clinically under direct visualization, as well as fluoroscopically. I utilized a 3.5 mm screw with excellent purchase. The lateral incision was then copiously irrigated and closed in a layered fashion utilizing 3-0 Monocryl and 3-0 nylon. I then made an approximately 4cm incision over the medial malleolus. The fracture was exposed and hematoma was removed. Reduction of the medial malleolar fracture was obtained with a pointed reduction clamp. I placed a guidewire for 4.0 mm cannulated screw. I confirmed the position of the guidewires fluoroscopically. I then overdrilled the wire and placed a partially threaded 4.0 mm cannulated screw. I then removed the guidewires and obtained final fluoroscopic images. I also performed a posteriorly directed stress test and there was no posterior instability appreciated, so I elected to treat the posterior malleolar fracture in a closed manner. At this point, we irrigated copiously and then closed in layers meticulously utilizing 3-0 Monocryl for the deep and subdermal layers and 3-0 nylon for the skin. A sterile dressing was then applied followed by a splint with the ankle in a neutral position. The patient was then awakened from anesthesia and transferred to the recovery room in stable condition. There were no complications. All needle and sponge counts were correct at the end of the case. ATTESTATION: I attest I was present and scrubbed and performed the critical portions of the procedure myself. POSTOPERATIVE PLAN: The postop plan is for [id number] for an anticipated duration of 6 weeks. Follow-up will be in 2 weeks. At that time we will likely transition into a [id number] aircast boot.
[2019-05-19] MEDS ORDERED: oxyCODONE TAB* 5 MG TAB ONE (15:38)
[2019-05-19 18:42] VITALS: BP 107/72
== END 2019-05-19 21:51 | disposition home or self-care (01) ==
LOC: OR 10:14
PROVIDERS: ATTEND Orthopaedic Surgery
DX: S82.852A Displaced trimalleolar fracture of left lower leg, initial encounter for closed fracture (principal); G89.18 Other acute postprocedural pain; W01.0XXA Fall on same level from slipping, tripping and stumbling without subsequent striking against object, initial encounter; Y92.9 Unspecified place or not applicable; K21.9 Gastro-esophageal reflux disease without esophagitis; F41.9 Anxiety disorder, unspecified; M71.552 Other bursitis, not elsewhere classified, left hip; M71.551 Other bursitis, not elsewhere classified, right hip
CPT/HCPCS: 76000; 81025; A9270-GY; C1713; C1776; J0690; J1100; J2250; J2704; J2795; J3490

== ENCOUNTER 2019-09-27 05:50 | Day surgery (SDC) | payer BC ==
[~2019-09-27 05:50] MED LIST changes: -Lactated Ringers 1000 ML Bag* 1,000 ML IV SCH
[2019-09-27] MEDS ORDERED: Lactated Ringers 1000 ML Bag* 1,000 ML IV SCH (06:00)
[2019-09-27] MEDS ORDERED: ceFAZolin 2 GM PREMIX in ORs 2 GM/50 ML BAG ONE (06:02)
[2019-09-27] MEDS ORDERED: Bupivacaine 0.5%* 50 ML MDV VIAL ONE (06:50)
[2019-09-27] MEDS ORDERED: Midazolam* 1 MG/ML 5 ML VIAL (5 MG) ONE (07:25)
[2019-09-27] MEDS ORDERED: fentaNYL* 50 MCG/ML 2 ML VIAL (100 MCG VIAL) ONE (07:38)
[2019-09-27] MEDS ORDERED: Lidocaine 1% INJ* 10 MG/ML 30 ML SDV ONE (07:46)
[2019-09-27] MEDS ORDERED: Propofol* 10 MG/ML 20 ML BTL ONE (07:53)
[2019-09-27] MEDS ORDERED: Dexamethasone IV* 4 MG/ML 1 ML (4 MG) ONE (07:53)
[2019-09-27] MEDS ORDERED: HYDROmorphone INJ1* 1 MG/ML SYRINGE IV PRN (08:02)
[2019-09-27] MEDS ORDERED: fentaNYL* 50 MCG/ML 2 ML VIAL (100 MCG VIAL) IV PRN (08:02)
[2019-09-27] MEDS ORDERED: oxyCODONE/Acetamin 5/325 MG* TAB PO PRN (08:02)
[2019-09-27] MEDS ORDERED: Ondansetron INJ* 2 MG/ML VIAL IV PRN (08:02)
[2019-09-27] MEDS ORDERED: Naloxone* 0.4 MG/ML 1 ML VIAL IV PRN (08:02)
[2019-09-27] MEDS ORDERED: Ondansetron INJ* 2 MG/ML VIAL ONE (08:04)
[2019-09-27] MEDS ORDERED: Ketorolac INJ* 30 MG/ML 1 ML VIAL ONE (08:04)
--- NOTE | 2019-09-27 08:41 | OP ---
Operative Report - Blank - Operative Report Date of Operation: 09/27/19 Note: PATIENT: Aliza Briggs DATE OF : 1975 DATE OF SURGERY: 09/27/2019 SURGEON: Pedro Dutton MD DEPOT AGENT: DONAVON Sprague, whos assistance was necessary for positioning, retraction, help with instrumentation, and closure. ANESTHESIOLOGIST: Dr. Lemos PREOPERATIVE DIAGNOSIS: Left ankle painful retained hardware POSTOPERATIVE DIAGNOSIS: Left ankle painful retained hardware OPERATION: 1. Left ankle, removal of implant, deep. 2. Stress fluoroscopy performed by surgeon under anesthesia. ANESTHESIA: MAC IMPLANTS: Removed one 3.5mm syndesmotic screw TOURNIQUET TIME: Less than 30 minutes with an ankle Esmarch tourniquet SPECIMENS: none ESTIMATED BLOOD LOSS: minimal COMPLICATIONS: none STATUS: Stable from the operating room to the recovery room and then home. INDICATIONS FOR PROCEDURE: Aliza had a prior left ankle and syndesmotic ORIF. Both operative and non operative treatment alternatives were reviewed. Further, the nature and risks of surgery were reviewed in careful detail, in the office as well as the pre- operative holding area. Our discussions regarding the risks of surgery included , but were not limited to, infection, wound problems, nerve injury, neuroma, RSD , persistent symptoms, blood clot, fracture, syndesmotic instability, need for further surgery, post-traumatic arthritis, failure of the surgery, and even the remote chance of catastrophic complication. DESCRIPTION OF PROCEDURE: The patient was seen in the preoperative holding unit and informed written consent was obtained. The appropriate extremity was marked. The patient was then brought to the operating room and carefully positioned on the operating room table. Anesthesia was induced. All bony prominences were padded with great care. A chlorhexidine based pre-scrub was performed followed by a chloraprep prep and drape in standard sterile fashion. A surgical safety pause was then conducted in which we confirmed the appropriate patient, extremity, planned procedure, availability of equipment, indication and administration of prophylactic antibiotics, and DVT prophylaxis in the form of a compression boot on the non-surgical extremity. We began by performing an Esmarch exsanguination of the limb, and placement of an ankle Esmarch tourniquet. I injected local anesthetic to the area of the prior surgical incision. Fluoroscopy was utilized to davi out the incision. I utilized the prior lateral ankle incision. I utilized blunt dissection down to the level of the hardware. I then utilized a scalpel to sharply expose the screw head. I then removed the screw utilizing a screwdriver without difficulty. The screw came out in its entirety. I then performed stress testing of the syndesmosis under fluoroscopy. I performed an external rotation stress test. No instability was appreciated at the syndesmosis or ankle mortise. Final fluoroscopic images were obtained demonstrating removal of the hardware. At this point, we irrigated copiously and then closed in layers meticulously utilizing 3-0 Monocryl and 3-0 nylon for the skin. A sterile dressing was then applied. The patient was then awakened from anesthesia and transferred to the recovery room in stable condition. There were no complications. All needle and sponge counts were correct at the end of the case. ATTESTATION: I attest I was present and scrubbed and performed the critical portions of the procedure myself. POSTOPERATIVE PLAN: The plan is to remove the sutures in 2 weeks.
[2019-09-27 09:06] VITALS: BP 108/66
== END 2019-09-27 09:03 | disposition home or self-care (01) ==
LOC: OR 05:50
PROVIDERS: ATTEND Orthopaedic Surgery
DX: T84.84XA Pain due to internal orthopedic prosthetic devices, implants and grafts, initial encounter (principal); Y83.1 Surgical operation with implant of artificial internal device as the cause of abnormal reaction of the patient, or of later complication, without mention of misadventure at the time of the procedure; S82.852D Displaced trimalleolar fracture of left lower leg, subsequent encounter for closed fracture with routine healing; Y92.9 Unspecified place or not applicable; X58.XXXD Exposure to other specified factors, subsequent encounter; I10 Essential (primary) hypertension; K21.9 Gastro-esophageal reflux disease without esophagitis; R42 Dizziness and giddiness; F41.9 Anxiety disorder, unspecified; J30.2 Other seasonal allergic rhinitis
CPT/HCPCS: 76000; 81025; 88300; J0690; J1100; J1885; J2250; J2405; J2704; J3010; J3490